=== PATIENT | male | born 1955 | race Caucasian/White ===

== ENCOUNTER 2017-10-24 13:12 | Outpatient (CLI) | payer BC, OTHER ==
--- NOTE | 2017-10-25 13:44 | XRAY Report ---
DATE OF SERVICE: 10/24/2017 RIGHT RIBS WITH FRONTAL CHEST: 10/24/2017 CLINICAL INDICATION: Fall, pain. Frontal view of the chest and oblique views of the right ribs were obtained, with markers at the site of maximal tenderness. The cardiac silhouette is within normal limits. The lungs demonstrate emphysema and fibrosis. No focal consolidation, effusion, or pneumothorax is evident. There are mildly displaced fractures of the right 7th, 8th, and 9th ribs. IMPRESSION: Mildly displaced right 7th, 8th, and 9th rib fractures. No pneumothorax. Emphysema and fibrosis. TD: 10/24/2017 18:45
== END 2017-10-24 13:13 | disposition home or self-care (01) ==
LOC: DI.S 13:12
PROVIDERS: ATTEND Family Medicine
DX: S22.41XA Multiple fractures of ribs, right side, initial encounter for closed fracture (principal)